=== PATIENT | female | born 1960 | race Caucasian/White ===

== ENCOUNTER 2018-09-19 14:28 | Emergency (ER) | payer BC ==
--- NOTE | 2018-09-19 14:32 | PDOC ---
Rapid Medical Evaluation Time Seen by Provider: 09/19/18 14:30 Medical Evaluation: Allergies Allergy/AdvReac Type Severity Reaction Status Date / Time No Known Drug Allergies Allergy Verified 05/29/15 17:01 ANIMAL DANDER Allergy Mild NASAL Uncoded 05/29/15 17:01 CONGESTION 09/19/18 14:30 HPI: R sided upper lip swelling x 1 day PE: R upper lip swelling ORDERS: nothing Discharge Disposition - Diagnosis Swollen upper lip - Referrals - Patient Instructions - Post Discharge Activity
[2018-09-19 14:35] VITALS: BP 157/87; PULSE 73; TEMP 98; BMI 30.7
[2018-09-19] MEDS ORDERED: DEXAMETHASONE LIQUID 0.5 MG/5 ML 240 ML BULK BOTTLE PO ONE (15:02)
--- NOTE | 2018-09-19 15:06 | PDOC ---
History of Present Illness - General Chief Complaint: Edema Stated Complaint: LIP SWOLLEN Time Seen by Provider: 09/19/18 14:30 History Source: Patient Exam Limitations: No Limitations Past History - Travel Traveled outside of the country in the last 30 days: No Close contact w/someone who was outside of country & ill: No - Past Medical History Allergies/Adverse Reactions: Allergies Allergy/AdvReac Type Severity Reaction Status Date / Time No Known Drug Allergies Allergy Verified 09/19/18 14:33 ANIMAL DANDER Allergy Mild NASAL Uncoded 09/19/18 14:33 CONGESTION Home Medications: Ambulatory Orders Simvastatin [Zocor -] 20 mg PO HS #1 05/08/13 Albuterol Sulfate Inhaler - [Ventolin HFA Inhaler -] 2 inh PO Q4H PRN #1 inhaler 12/18/13 Fluticasone Prop 0.05% Nasal [Flonase -] 1 - 2 spray NS DAILY 09/02/16 Multivitamin [Poly-Vitamin] 1 each PO DAILY 09/02/16 Anemia: No Asthma: Yes Cancer: No Cardiac Disorders: No CVA: No COPD: No CHF: No Dementia: No Diabetes: No GI Disorders: No Disorders: No HTN: No Hypercholesterolemia: Yes Liver Disease: No Seizures: No Thyroid Disease: No - Surgical History Abdominal Surgery: Yes (RIGHT OOPHERECTOMY) Appendectomy: No Cardiac Surgery: No Cholecystectomy: Yes Lung Surgery: No Neurologic Surgery: No Orthopedic Surgery: No - Family Disease History Family Disease History: Heart Disease: Grandparents (maternal dad ([place]) at age 70 at age 94) - Suicide/Smoking/Psychosocial Hx Smoking History: Current every day smoker Years of Tobacco Use: 25 Have you smoked in the past 12 months: No Number of Cigarettes Smoked Daily: 20 If you are a former smoker, when did you quit?: 1 year ago Information on smoking cessation initiated: No 'Breaking Loose' booklet given: 03/14/12 Hx Alcohol Use: No Drug/Substance Use Hx: No Substance Use Type: None, Marijuana Hx Substance Use Treatment: No Review of Systems - Review of Systems Able to Perform ROS?: Yes Comments:: 09/19/18 16:02 CONSTITUTIONAL: Absent: fever, chills, diaphoresis, generalized weakness, malaise, loss of appetite HEENT: Present: Upper lip swelling Absent: rhinorrhea, nasal congestion, throat pain, throat swelling, difficulty swallowing, mouth swelling, ear pain, eye pain, visual Changes CARDIOVASCULAR: Absent: chest pain, loss of consciousness, palpitations, irregular heart rate, peripheral edema RESPIRATORY: Absent: cough, shortness of breath, dyspnea with exertion, orthopnea, wheezing, stridor, hemoptysis MUSCULOSKELETAL: Absent: myalgia, arthralgia, joint swelling SKIN: Absent: rash, itching, pallor HEMATOLOGIC/IMMUNOLOGIC: Absent: easy bleeding, easy bruising, lymphadenopathy, frequent infections ENDOCRINE: Absent: unexplained weight gain, unexplained weight loss, heat intolerance, cold intolerance NEUROLOGIC: Absent: headache, focal weakness or paresthesias, dizziness, unsteady gait, seizure, mental status changes, bladder or bowel incontinence PSYCHIATRIC: Absent: anxiety, depression, suicidal or homicidal ideation, hallucinations. Is the patient limited Irish proficient: No *Physical Exam - Vital Signs Last Vital Signs Temp Pulse Resp BP Pulse Ox 98 F 73 16 157/87 100 09/19/18 14:33 09/19/18 14:33 09/19/18 14:33 09/19/18 14:33 09/19/18 14:33 - Physical Exam Comments: 09/19/18 16:03 GENERAL: Well developed, well nourished. Awake and alert. No acute distress. HEENT: R upper lip is edematous with mild erythmea well demarkated to the midline. Normocephalic, atraumatic. PERRLA, EOMI. No conjunctival pallor. Sclera are non- icteric. Moist mucous membranes. Oropharynx is clear. NECK: Supple. Full ROM. No JVD. Carotid pulses 2+ and symmetric, without bruits. No thyromegaly. No lymphadenopathy. CARDIOVASCULAR: Regular rate and rhythm. No murmurs, rubs, or gallops. Distal pulses are 2+ and symmetric. PULMONARY: No evidence of respiratory distress. Lungs clear to auscultation bilaterally. No wheezing, rales or rhonchi. SKIN: Warm and dry. Normal capillary refill. No rashes. No jaundice. NEUROLOGICAL: Alert, awake, appropriate. Cranial nerves 2-12 intact. No deficits to light touch and temperature in face, upper extremities and lower extremities. No motor deficits in the in face, upper extremities and lower extremities. Normoreflexic in the upper and lower extremities. Normal speech. Toes are down- going bilaterally. Gait is normal without ataxia. PSYCHIATRIC: Cooperative. Good eye contact. Appropriate mood and affect. Medical Decision Making - Medical Decision Making 09/19/18 16:05 The patient is a 58-year-old female with past medical history of HLD, herniated disks in the back, presents to the ER for right upper lip swelling since this morning. She states she woke up and noticed that the right side of her upper lip was swollen. She does not remember being bitten by anything. She does not take any PETER inhibitors. She does state that she takes Motrin on a regular basis for her back pain. Denies fevers, chills, difficulty breathing, difficulty swallowing, difficulty speaking, stridor. A/P: Angioedema On initial exam, patient with edematous right upper lip well demarcated at the midline. Decadron and ice were given and patient was observed. After proximally and hour after administration of the medication, the swelling has past the midline and is now going to the whole upper lip. No swelling of the lip noted, airway is open, clear and maintained. No stridor noted Possible angioedema from NSAID use? Transfer to Main ED for further level of care. Dr. Isaac, Dr. Burgos and charge nurse Justus made aware *DC/Admit/Observation/Transfer Diagnosis at time of Disposition: Angioedema Qualifiers: Encounter type: initial encounter Qualified Code(s): T78.3XXA - Angioneurotic edema, initial encounter - Referrals - Patient Instructions - Post Discharge Activity
[2018-09-19] MEDS ORDERED: DEXAMETHASONE SOD PHOSPHATE 10 MG/1 ML VIAL ONE (15:10)
--- NOTE | 2018-09-19 16:29 | PDOC ---
*Physical Exam - Vital Signs Last Vital Signs Temp Pulse Resp BP Pulse Ox 98 F 73 16 157/87 100 09/19/18 14:33 09/19/18 14:33 09/19/18 14:33 09/19/18 14:33 09/19/18 14:33 ED Treatment Course - LABORATORY CBC & Chemistry Diagram: 09/19/18 17:15 09/19/18 17:15 - Medications Given in the ED: ED Medications Discontinued Medications Generic Name Dose Route Start Last Admin Trade Name Daniela PRN Reason Stop Dose Admin Dexamethasone 10 mg 09/19/18 15:02 09/19/18 15:11 Decadron Liquid - PO 09/19/18 15:03 10 mg ONCE ONE Administration Medical Decision Making - Medical Decision Making 58yo F with PMH of HLD, herniated discs presenting with right upper lip swelling that did not go beyond midline No trouble breathing, tongue swelling, throat swelling, itchy throat, muffled voice, hoarseness, or slurred speech. Patient received decadron and ice Since that time, swelling of upper lip got worse, extending to rest of lip Also noting urticaria to her face and RUE that was not present before; pruritis to RUE as well. RRR, Lungs CTAB DDX including but not limited to angioedema, allergic reaction 09/19/18 16:50 Labs sent Famotidine Diphenhydramine Will reassess 09/19/18 17:25 CBC WBC 8.8 K/mm3 (4.0-10.0) 09/19/18 17:15 RBC 4.82 M/mm3 (3.60-5.2) 09/19/18 17:15 Hgb 14.9 GM/dL (10.7-15.3) 09/19/18 17:15 Hct 44.8 % (32.4-45.2) 09/19/18 17:15 MCV 92.9 fl (80-96) 09/19/18 17:15 MCH 30.8 pg (25.7-33.7) 09/19/18 17:15 MCHC 33.2 g/dl (32.0-36.0) 09/19/18 17:15 RDW 13.3 % (11.6-15.6) 09/19/18 17:15 Plt Count 309 K/MM3 (134-434) 09/19/18 17:15 MPV 7.2 fl (7.5-11.1) L 09/19/18 17:15 Absolute Neuts (auto) 6.6 K/mm3 (1.5-8.0) 09/19/18 17:15 Neutrophils % 74.9 % (42.8-82.8) D 09/19/18 17:15 Lymphocytes % 21.7 % (8-40) D 09/19/18 17:15 Monocytes % 2.5 % (3.8-10.2) L 09/19/18 17:15 Eosinophils % 0.7 % (0-4.5) 09/19/18 17:15 Basophils % 0.2 % (0-2.0) 09/19/18 17:15 Nucleated RBC % 0 % (0-0) 09/19/18 17:15 No anemia or leukocytosis Normal eosinophils CMP Sodium 143 mmol/L (136-145) 09/19/18 17:15 Potassium 4.1 mmol/L (3.5-5.1) 09/19/18 17:15 Chloride 111 mmol/L (98-107) H 09/19/18 17:15 Carbon Dioxide 26 mmol/L (21-32) 09/19/18 17:15 Anion Gap 6 MMOL/L (8-16) L 09/19/18 17:15 BUN 12.4 mg/dL (7-18) 09/19/18 17:15 Creatinine 0.7 mg/dL (0.55-1.3) 09/19/18 17:15 Est GFR (CKD-EPI)AfAm 112.26 09/19/18 17:15 Est GFR (CKD-EPI)NonAf 96.86 09/19/18 17:15 Random Glucose 106 mg/dL (74-106) 09/19/18 17:15 Calcium 9.5 mg/dL (8.5-10.1) 09/19/18 17:15 Total Bilirubin 0.3 mg/dL (0.2-1) 09/19/18 17:15 AST 18 U/L (15-37) 09/19/18 17:15 ALT 45 U/L (13-61) 09/19/18 17:15 Alkaline Phosphatase 80 U/L (45-117) 09/19/18 17:15 Total Protein 7.2 g/dl (6.4-8.2) 09/19/18 17:15 Albumin 4.2 g/dl (3.4-5.0) 09/19/18 17:15 Electrolytes unremarkable 09/19/18 18:19 Lip swelling and urticaria on face improved Presentation likely allergic reaction with combination of edema, urticaria, and pruritis, however, unable to identify any potential exposures. Do not think this is hereditary angioedema or medication-induced angioedema. 09/19/18 18:46 Plan for discharge 09/19/18 18:53 *DC/Admit/Observation/Transfer Diagnosis at time of Disposition: Angioedema Qualifiers: Encounter type: initial encounter Qualified Code(s): T78.3XXA - Angioneurotic edema, initial encounter Allergic reaction Qualifiers: Encounter type: initial encounter Qualified Code(s): T78.40XA - Allergy, unspecified, initial encounter - Discharge Dispostion Disposition: HOME Condition at time of disposition: Stable - Prescriptions Prescriptions: Epinephrine [Epipen] 0.3 mg IJ PRN PRN #1 auto.injct PRN Reason: anaphylaxis Prednisone [Deltasone] 40 mg PO DAILY #10 tablet - Referrals Referrals: Jose David Cates MD [Primary Care Provider] - - Patient Instructions Printed Discharge Instructions: DI for General Allergic Reactions, How to use an Epinephrine Auto-Injector -- Adult Additional Instructions: You came into the ED for swelling. Your symptoms seem consistent with an allergic reaction. Blood work which was within normal limits. We gave you medicine which improved your symptoms. Prescriptions sent to your pharmacy. This includes an epi-pen. Keep this with you at all times. Please review the handout on how to use it. Follow-up with your primary care physician this week to discuss this ED visit and to further evaluate your swelling. Call and make an appointment. Your workup is not complete until you do so. Immediate medical attention is required if you have new or worsening symptoms including: Swollen tongue Difficulty breathing A sense of fullness, squeezing, or pressure in the chest Rapid, irregular heartbeat Nausea, vomiting Skin Rash If you think you have an emergency, call for medical help right away. - Post Discharge Activity
[2018-09-19] MEDS ORDERED: FAMOTIDINE 20 MG/50 ML IVPB 20 MG/50 ML MG IVPB ONE ×2 (16:57→17:24)
[2018-09-19 17:58] LABS: BASO % 0.2 % (0-2.0); EOS % 0.7 % (0-4.5); HEMATOCRIT 44.8 % (32.4-45.2); HEMOGLOBIN 14.9 GM/dL (10.7-15.3); LYMPH % 21.7 % (8-40); MCH 30.8 pg (25.7-33.7); MCHC 33.2 g/dl (32.0-36.0); MEAN CELL VOLUME 92.9 fl (80-96); MEAN PLT VOLUME 7.2 fl (7.5-11.1); MONO % 2.5 % (3.8-10.2); NEUT % 74.9 % (42.8-82.8); PLATELET COUNT 309 K/MM3 (134-434); RBC 4.82 M/mm3 (3.60-5.2); RDW 13.3 % (11.6-15.6); WHITE BLOOD COUNT 8.8 K/mm3 (4.0-10.0)
[2018-09-19 18:06] LABS: ALBUMIN 4.2 g/dl (3.4-5.0); BILIRUBIN,TOTAL 0.3 mg/dL (0.2-1); BLOOD UREA NITROGEN 12.4 mg/dL (7-18); CALCIUM 9.5 mg/dL (8.5-10.1); CREATININE 0.7 mg/dL (0.55-1.3); POTASSIUM 4.1 mmol/L (3.5-5.1); TOT PROT 7.2 g/dl (6.4-8.2)
--- NOTE | 2018-09-19 18:09 | PDOC ---
Documentation entered by Jocy Stokes SCRIBE, acting as scribe for Shimon Payne MD. Shimon Payne MD: This documentation has been prepared by the sirishaibe, Jocy Stokes SCRIBE, under my direction and personally reviewed by me in its entirety. I confirm that the documentation accurately reflects all work, treatment, procedures, and medical decision making performed by me. Attending Attestation - Resident Resident Name: Mary Ann Burgos - ED Attending Attestation I have performed the following: I have examined & evaluated the patient, The case was reviewed & discussed with the resident, I agree w/resident's findings & plan, Exceptions are as noted - Physicial Exam PE: 09/19/18 18:07 Patient is awake and alert, obese, in no respiratory distress Normocephalic and atraumatic PERRLA, EOMI No scleral icterus, no conjunctival injection + Angioedema of the upper lip Tongue is nonedematous, uvula is midline and is not edematous; No stridor CTA RRR + Well demarcated elevated, erythematous, blanching rash to the right upper extremity consistent with urticaria - Medical Decision Making 09/19/18 18:08 58-year-old female presents with a localized urticaria to the right upper extremity and angioedema of the upper lip without evidence of respiratory compromise or wheezing. I suspect environmental exposure and not hereditary angioedema. We'll administer steroids, Benadryl and H2 blockers. Will observe. Will discharge with prednisone, Benadryl and Zantac with EpiPen as needed for airway symptoms.
== END 2018-09-19 19:00 | disposition home or self-care (01) ==
LOC: JERFT 14:28 → JER 14:28
PROC: 3E033GC Introduction of Other Therapeutic Substance into Peripheral Vein, Percutaneous Approach (ICD-10-PCS; principal; 2018-09-19)
DX: T78.3XXA Angioneurotic edema, initial encounter (principal); X58.XXXA Exposure to other specified factors, initial encounter; Y93.9 Activity, unspecified; Y92.9 Unspecified place or not applicable; E78.00 Pure hypercholesterolemia, unspecified; J45.909 Unspecified asthma, uncomplicated; F17.210 Nicotine dependence, cigarettes, uncomplicated
CPT/HCPCS: 36415; 80053; 85025; 99281-25